=== PATIENT | male | born 1980 | race Caucasian/White ===

== ENCOUNTER 2022-07-11 12:41 | Emergency (ER) | payer MEDICAID ==
[2022-07-11] MEDS ORDERED: Ketorolac 30 MG/ML SDV IM ONE (13:45)
[2022-07-11] MEDS ORDERED: Ondansetron 4 MG Tab.DIS PO ONE (13:46)
[2022-07-11 15:30] VITALS: BP 151/86; PULSE 75
[2022-07-11] MEDS ORDERED: Tamsulosin 0.4 MG Cap.ER PO ONE (15:54)
== END 2022-07-11 16:19 | disposition home or self-care (01) ==
LOC: JP.ED 12:41
DX: N13.2 Hydronephrosis with renal and ureteral calculous obstruction (principal); K42.9 Umbilical hernia without obstruction or gangrene
CPT/HCPCS: 74176; 81001; 96372; 99284; A9270; J1885; Q0162